=== PATIENT | female | born 1960 | race Caucasian/White ===

== ENCOUNTER → 2023-05-08 | Outpatient (CLI) | payer BC ==
--- NOTE | 2023-05-08 08:53 | XR ---
EXAMINATION TYPE: XR chest 2V DATE OF EXAM: 05/08/2023 COMPARISON: None HISTORY: 62-year-old female with chest pain TECHNIQUE: Frontal and lateral views FINDINGS: Heart normal size. Aorta and pulmonary vasculature within normal limits. Surgical clips project at th e periphery of the right lower lung. Additional surgical clips in the GE junction region and upper ab domen. Eventration anterior hemidiaphragm. Some right apical pleural parenchymal scarring is noted. N o consolidation or pleural effusion otherwise seen. Left-sided breast implant. IMPRESSION: Some right apical pleural parenchymal scarring. Eventration anterior right hemidiaphragm. Otherwise, no definite acute process.
[2023-05-08 16:59] LABS: Basophils # (A) 0.06 X 10*3/uL (0.00-0.10); Eosinophils # (A) 0.11 X 10*3/uL (0.04-0.35); Eosinophils % (A) 1.8 %; HCT 42.5 % (37.2-46.3); HGB 14.5 d/dL (12.0-15.0); Lymphocytes % (A) 26.1 %; MCH 29.5 pg (27.0-32.0); MCHC 34.1 d/dL (32.0-37.0); MCV 86.6 FL (80.0-97.0); Mean Platelet Volume 11.2 FL (9.5-12.2); Monocytes # (A) 0.46 X 10*3/uL (0.20-1.00); Monocytes % (A) 7.5 %; NRBC Per 100 WBC 0 X 10*3/uL (0.00-0.01); Neutrophils # (A) 3.88 X 10*3/uL (1.80-7.70); Neutrophils % (A) 63.3 %; Platelet Count 285 X 10*3/uL (140-440); RBC 4.91 X 10*6/uL (4.10-5.20); RDW 13.6 % (11.5-14.5); WBC 6.13 X 10*3/uL (4.50-10.00)
[2023-05-08 17:38] LABS: % Iron Saturation 28.66 (12.00-45.00); ALT 25 U/L (8-44); AST 29 U/L (13-35); Albumin 4.9 d/dL (3.8-4.9); Albumin/Globulin Ratio 2.33 Ratio (1.60-3.17); Alkaline Phosphatase 79 U/L (41-126); BUN/Creat Ratio 28.73 Ratio (12.00-20.00); Blood Urea Nitrogen 31.6 mg/dL (9.0-27.0); Calcium 10.2 mg/dL (8.7-10.3); Carbon Dioxide 23.6 mmol/L (21.6-31.8); Chloride 100 mmol/L (96-109); Chol/HDL Ratio 3.51 Ratio; Globulin 2.1 d/dL (1.6-3.3); Glucose 101 mg/dL (70-110); Iron 90 UG/DL (50-170); LDL Cholesterol,Calculated 199.5 mg/dL (0.0-131.0); Potassium 3.8 mmol/L (3.5-5.5); Sodium 140 mmol/L (135-145); Total Bilirubin 0.5 mg/dL (0.3-1.2); Total Iron Binding Capacity 314 UG/DL (228-460); VLDL Calculation 15.04 mg/dL (5.00-40.00)
--- NOTE | 2023-05-08 18:14 | CA ---
Stress Echo Report Suha Mary Age: 62 Gender: F : 1960 Exam Date: 05/08/2023 09:21 Exam Location: [facility] Ht (in): 63 Wt (lb): 175 Ordering Physician: Osiel Deras MD Referring Physician: SHANNAN, Equipment Detailer: KHARI Technologist Procedure CPT: Indication: R07.9 CHEST PAIN ICD-9 Codes: Rhythm: Patient History: CHEST PAIN, DIFFICULTY IN BREATHING, HTN, FAMILY HX OF HEART DISEASE, PRIOR SMOKER, ASTHMA Cardiac Medications: Medications in past 24 hours: Contrast: Stress Results Protocol: Hayes Total dose(mL): Exercise Duration (min:sec): Max ST Depression (mm): Angina Score: Pinon Score: METS: 7.3 Resting HR: 87 Resting BP: 141 / 69 Peak HR: 162 Peak BP: 208 / 89 Max Predicted HR: 156 104 % Max Predicted HR Target HR: 133 Double Product: [id number] Stress Summary: The hemodynamic response to exercise was normal The patient's target heart rate was achieved BP Response: Reason for Termination: TARGET HR/MAX EXERTION Cardiac Symptoms: NO SYMPTOMS ECG Analysis Resting ECG: Normal sinus rhythm, normal ECG Stress ECG: Borderline ST depression - inferior leads Arrhythmia: None Echo Analysis Resting Echo: Normal resting echocardiogram. Peak Echo Analysis: Normal wall thickening and motion MEASUREMENTS (Male/Female) Normal Values CONCLUSIONS 1. Average exercise tolerance 2. Borderline positive electrocardiographic stress testing 3. Normal stress echocardiogram with no evidence of stress induced ischemia Dr. Cecy Broussard MD (Electronically Signed) Final Date: 08 May 2023 18:13
== END | disposition home or self-care (01) ==
LOC: RADNMMAIN 08:11
PROVIDERS: ATTEND Internal Medicine
DX: J45.909 Unspecified asthma, uncomplicated (principal); J94.8 Other specified pleural conditions; R07.9 Chest pain, unspecified; Z98.84 Bariatric surgery status
CPT/HCPCS: 71046; 80053; 80061; 82306; 82607; 82746; 83540; 83550; 83735; 84443; 85025; 93351

== ENCOUNTER → 2023-06-03 | Outpatient (CLI) | payer BC ==
--- NOTE | 2023-06-03 09:58 | US ---
EXAMINATION TYPE: US kidneys/renal and bladder DATE OF EXAM: 06/03/2023 COMPARISON: NONE CLINICAL INDICATION: Female, 62 years old with history of N28.9 DISORDER OF KIDNEY AND URETER, UNSPEC IFIED; abnormal lab work EXAM MEASUREMENTS: Right Kidney: 8.7x3.1x4.5 cm Left Kidney: 7.7x3.3x5.1 cm Right Kidney: renal pelvis slightly dilated Left Kidney: renal pelvis slightly dilated, cystic area at superior pole: 1.3x0.9x0.9cm Bladder: wnl Bilateral Jets seen: Yes There is no evidence for hydronephrosis at this point in time. No nephrolithiasis is seen. The urina ry bladder is anechoic. Bilateral ureteral jets are seen. 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 There is evidence of splenomegaly 2. Fullness of the renal pelves bilaterally.
== END | disposition home or self-care (01) ==
LOC: RADUSWWP 09:20
PROVIDERS: ATTEND Internal Medicine
DX: N28.9 Disorder of kidney and ureter, unspecified (principal); R16.1 Splenomegaly, not elsewhere classified; Z85.42 Personal history of malignant neoplasm of other parts of uterus
CPT/HCPCS: 76770

== ENCOUNTER → 2023-11-27 | Outpatient (CLI) | payer MEDICARE ==
[2023-11-27 15:53] LABS: HGB 13.2 g/dL (12.0-15.0); MCH 29.3 pg (27.0-32.0); MCHC 32.2 g/dL (32.0-37.0); MCV 90.9 FL (80.0-97.0); Mean Platelet Volume 11.5 FL (9.5-12.2); NRBC Per 100 WBC 0 X 10*3/uL (0.00-0.01); Platelet Count 215 X 10*3/uL (140-440); RBC 4.51 X 10*6/uL (4.10-5.20); RDW 14.6 % (11.5-14.5); WBC 5.11 X 10*3/uL (4.50-10.00)
[2023-11-27 16:38] LABS: ALT 31 U/L (8-44); AST 23 U/L (13-35); Alkaline Phosphatase 79 U/L (41-126); BUN/Creat Ratio 26.27 Ratio (12.00-20.00); Blood Urea Nitrogen 28.9 mg/dL (9.0-27.0); Calcium 9.5 mg/dL (8.7-10.3); Carbon Dioxide 27.9 mmol/L (21.6-31.8); Chloride 104 mmol/L (96-109); Chol/HDL Ratio 2.63 Ratio; Globulin 2.1 g/dL (1.6-3.3); Glucose 89 mg/dL (70-110); Potassium 4.2 mmol/L (3.5-5.5); Sodium 143 mmol/L (135-145); Total Bilirubin 0.5 mg/dL (0.3-1.2); Total Protein 6.1 g/dL (6.2-8.2); VLDL Calculation 12.26 mg/dL (5.00-40.00)
== END | disposition home or self-care (01) ==
LOC: LABWHC1 07:18
PROVIDERS: ATTEND Student in an Organized Health Care Education/Training Program
DX: E11.9 Type 2 diabetes mellitus without complications (principal); I50.9 Heart failure, unspecified; I25.10 Atherosclerotic heart disease of native coronary artery without angina pectoris; R06.02 Shortness of breath
CPT/HCPCS: 36415; 80053; 80061; 82306; 83036; 84443; 85027

== ENCOUNTER → 2024-12-04 | Outpatient (CLI) | payer MEDICARE ==
[2024-12-05 06:46] LABS: Basophils # (A) 0.08 X 10*3/uL (0.00-0.10); Basophils % (A) 1.6 %; HCT 45.7 % (37.2-46.3); HGB 15.1 g/dL (12.0-15.0); Lymphocytes # (A) 1.06 X 10*3/uL (0.90-5.00); Lymphocytes % (A) 20.9 %; MCH 28.6 pg (27.0-32.0); MCV 86.6 FL (80.0-97.0); Mean Platelet Volume 11.7 FL (9.5-12.2); Monocytes # (A) 0.36 X 10*3/uL (0.20-1.00); Monocytes % (A) 7.1 %; NRBC Per 100 WBC 0 X 10*3/uL (0.00-0.01); Neutrophils # (A) 3.46 X 10*3/uL (1.80-7.70); Platelet Count 220 X 10*3/uL (140-440); RBC 5.28 X 10*6/uL (4.10-5.20); RDW 13.9 % (11.5-14.5); WBC 5.08 X 10*3/uL (4.50-10.00)
[2024-12-05 07:40] LABS: ALT 26 U/L (8-44); AST 26 U/L (13-35); Albumin 4.5 g/dL (3.8-4.9); Albumin/Globulin Ratio 1.96 Ratio (1.60-3.17); Alkaline Phosphatase 76 U/L (41-126); BUN/Creat Ratio 30.73 Ratio (12.00-20.00); Blood Urea Nitrogen 33.8 mg/dL (9.0-27.0); Calcium 9.5 mg/dL (8.7-10.3); Chloride 98 mmol/L (96-109); Chol/HDL Ratio 3.95 Ratio; Globulin 2.3 g/dL (1.6-3.3); Glucose 98 mg/dL (70-110); LDL Cholesterol,Calculated 199.2 mg/dL (0.0-131.0); Magnesium 1.9 mg/dL (1.5-2.4); Phosphorus 3.3 mg/dL (2.4-5.1); Sodium 139 mmol/L (135-145); Total Bilirubin 0.6 mg/dL (0.3-1.2); Total Protein 6.8 g/dL (6.2-8.2); VLDL Calculation 17.32 mg/dL (5.00-40.00)
== END | disposition home or self-care (01) ==
LOC: LABWHC1 08:43
PROVIDERS: ATTEND Internal Medicine
DX: Z12.31 Encounter for screening mammogram for malignant neoplasm of breast (principal); I10 Essential (primary) hypertension; Z98.84 Bariatric surgery status
CPT/HCPCS: 36415; 80053; 80061; 82306; 82607; 82746; 83735; 84100; 84443; 85025

== ENCOUNTER → 2024-12-08 | Outpatient (CLI) | payer MEDICARE ==
--- NOTE | 2024-12-08 18:29 | CT ---
EXAMINATION TYPE: CT abdomen pelvis w con DATE OF EXAM: 12/08/2024 5:47 PM COMPARISON: None CLINICAL INDICATION: Female, 64 years old with history of R22.2 LOCALIZED SWELLING, MASS AND LUMP, TR UNK; lump under left ribs TECHNIQUE: Axial CT abdomen pelvis w con;Sagittal and coronal reformats were created on a separate w orkstation. Contrast used:80cc mL of Isovue 300 with IV Contrast, (none if empty) Oral contrast used: with Oral Contrast (none if empty) CT DLP: 1048.1 mGycm, Automated exposure control for dose reduction was used. FINDINGS: LOWER CHEST: Unremarkable ABDOMEN LIVER: Unremarkable GALLBLADDER AND BILE DUCTS: Surgically absent gallbladder mild dilation.Common duct measuring up to 8 mm. PANCREAS: Unremarkable. SPLEEN: Enlarged degenerative 14.8 cm.. ADRENAL GLANDS: Unremarkable. KIDNEYS AND URETERS: No evidence of hydronephrosis or renal calculus. The ureters are unremarkable. PELVIS BLADDER: No evidence for wall thickening or mass given limitations of exam. REPRODUCTIVE: The uterus is surgically absent. ABDOMEN & PELVIS STOMACH AND BOWEL: No evidence of bowel obstruction. Postsurgical changes of the gastric esophageal j unction.. Mild small amount of hernia. PERITONEUM/RETROPERITONEUM: No evidence of pneumoperitoneum or free fluid. VASCULATURE: No evidence of aortic aneurysm. 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 MUSCULOSKELETAL: No acute osseous abnormalities LYMPH NODES: No gross evidence for lymphadenopathy. SOFT TISSUE/ABDOMINAL WALL: Unremarkable IMPRESSION: 1. Multiple left rib most compatible with splenomegaly. 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 There is filling defect within the superior mesenteric vein. 2. Surgically absent gallbladder. Mild ductal dilation was to normal physiology. 3. Surgical changes of the stomach with small moderate hernia. [facility], , 12/08/2024 6:27 PM
== END | disposition home or self-care (01) ==
LOC: RADCTMAIN 15:19
PROVIDERS: ATTEND Internal Medicine
DX: R16.1 Splenomegaly, not elsewhere classified (principal); R22.2 Localized swelling, mass and lump, trunk; Z90.49 Acquired absence of other specified parts of digestive tract
CPT/HCPCS: 74177; Q9967

== ENCOUNTER 2024-12-10 09:08 | Day surgery (SDC) | payer MEDICARE ==
[2024-12-09 10:07] VITALS: BMI 34.3
[2024-12-10] MEDS: IV FLUID CONTINUATION 1,000 ML IV ONE (09:26)
[2024-12-10] MEDS: LACTATED RINGERS 1,000 ML IV SCH (09:42)
[2024-12-10 09:45] VITALS: TEMP 98
[2024-12-10] MEDS ORDERED: PROPOFOL 10 MG/ML 20 ML VIAL IV ONE (09:45)
[2024-12-10] MEDS ORDERED: LIDOCAINE 2% (PF) 20 MG/ML 5 ML VIAL ONE (09:45)
--- NOTE | 2024-12-10 10:11 | P.PCN ---
Date of Procedure: 12/10/24 Procedure(s) Performed: Brief history: Patient is a pleasant 64-year-old white female scheduled for an elective upper endoscopy as well as colonoscopy as a part of evaluation of lungs and history of GERD and change in bowel habits Procedure performed: Esophagogastroduodenoscopy with biopsy. Colonoscopy with biopsy Preoperative diagnosis: Longstanding history of GERD Change in bowel habits Anesthesia: MAC Procedure: After informed consent was obtained from the patient was brought into the endoscopy unit and IV sedation was administered by anesthesia under continuous monitoring. Initially upper endoscopy was done. The Olympus GF 160 video endoscope was inserted inserted into the mouth and esophagus intubated without any difficulty and was gradually advanced into the stomach and duodenum and carefully examined. The bulb and second part of the duodenum appeared normal. The scope was then withdrawn into the stomach adequately insufflated with air and upon careful examination the antrum had linear areas of erythema consistent with gastritis and biopsies were done from this area. Mucosa body, cardia and fundus appeared normal. There was evidence of gastric sleeve surgery noted. The scope was then withdrawn into the esophagus. Moderate size hiatal hernia noted. The GE junction was located at 35 cm to the incisors. It appeared regular with erosions and ulcerations consistent with LA grade C reflux esophagitis. Rest of the esophagus appeared normal. Patient tolerated the pro cedure well. At this time the patient continued to remain sedation. Initial digital rectal examination was normal. Olympus CF 160 video colonoscope was then inserted into the rectum and gradually advanced to the sigmoid colon and further advancement was not possible because of acute angulation in this area. The scope was removed. A colonoscopy was then introduced into the rectum and gradually advanced into the cecum without any difficulty. Careful examination was performed as the scope was gradually being withdrawn. The prep was excellent. The cecum, ascending colon, transverse colon, descending colon, appeared normal. There was some sigmoid narrowing noted with mild erythema of the colon extending from 25 to 35 cm from the anal verge and multiple biopsies were done from this area. Scattered sigmoid diverticulosis noted in this area. Rest of the sigmoid colon and rectum appeared normal. Scattered sigmoid diverticulosis retroflexion was performed in the rectum and no lesions were noted. Patient tolerated the procedure well. Impression: 1. Upper endoscopy revealed erosions and mild ulceration in the distal esophagus consistent with LA grade C reflux esophagitis, early esophageal stricture, moderate size hiatal hernia and mild antral gastritis 2. Colonoscopy revealed segmental sigmoid colitis with narrowing extending from 25 to 39 cm from anal verge and scattered sigmoid diverticulosis status post biopsy. Rest of the colon appeared normal. Recommendations: Findings of this examination were discussed with the patient as well as her family. She was advised to follow-up with the biopsy results. Continue with a high-fiber diet and fiber supplements on a regular basis. Started on Protonix 40 mg twice daily and follow antireflux measures. Follow-up in the office in 2 to 3 weeks.
[2024-12-10 10:35] VITALS: BP 136/79; PULSE 69; RESP 18
== END 2024-12-10 10:50 | disposition home or self-care (01) ==
LOC: ORWHC2ENDO 09:08
PROVIDERS: ATTEND Internal Medicine Gastroenterology
DX: K29.50 Unspecified chronic gastritis without bleeding (principal); K22.10 Ulcer of esophagus without bleeding; K44.9 Diaphragmatic hernia without obstruction or gangrene; K57.30 Diverticulosis of large intestine without perforation or abscess without bleeding; K56.699 Other intestinal obstruction unspecified as to partial versus complete obstruction; K21.9 Gastro-esophageal reflux disease without esophagitis
CPT/HCPCS: 88305; 45380; 43239; J2704; J2003